=== PATIENT | female | born 1985 | race Hispanic/Latino ===

== ENCOUNTER 2019-09-14 23:04 | Emergency (ER) | payer BC, MEDICAID | END 2019-09-15 00:43 | disposition home or self-care (01) | LOC: EDH 23:04 | DX: O10.013 Pre-existing essential hypertension complicating pregnancy, third trimester (principal); B34.9 Viral infection, unspecified; O98.513 Other viral diseases complicating pregnancy, third trimester; Z3A.28 28 weeks gestation of pregnancy; Z98.890 Other specified postprocedural states | CPT/HCPCS: 99281 ==